=== PATIENT | female | born 1950 | race Two or more races ===

== ENCOUNTER 2019-04-19 17:51 | Emergency (ER) | payer OTHER ==
[~2019-04-19] VITALS: Ht 157.5 cm; Wt 57.2 kg
[~2019-04-19 17:51] MED LIST: ADVAIR 2501 DISK W/1 IH; CIPRO I.V.400 MG/201 IV; CLARINEX5 MG/TAB PO; COUMADIN; COUMADIN5 MG; CRESTOR10 MG PO; GLUCOPHAGE XR500 MG PO; GLUCOTROL10 MG; GLUCOTROL10 MG PO; HUMALOG100 U/ML SQ; HumaLOG 100 UNIT/1 ML (3ML) SUBCUTANEO; Lantus 1000 U/10 ML SUBCUTANEO; MEDROL4 MG PO; NEURONTIN300 MG; PLAVIX75 MG PO; SINGULAIR 10MG10 MG; SINGULAIR10 MG PO; SKELAXIN800 MG PO; TUSSIONEX PENNKI5 ML; TUSSIONEX PENNKI5 ML PO; XOPENEX1.25 MG/0. IH; ZESTRIL5 MG PO; ZYNCOF 20-400120 ML PO
[2019-04-19] MEDS ORDERED: JANUMET 50-5001 EACH (18:45)
== END 2019-04-19 20:36 | disposition home or self-care (01) ==
LOC: ER 17:51
DX: K04.7 Periapical abscess without sinus (principal)

== ENCOUNTER 2019-04-20 23:33 | Emergency (ER) | payer OTHER ==
[~2019-04-20] VITALS: Ht 157.5 cm; Wt 57.2 kg
[~2019-04-20 23:33] MED LIST changes: +JANUMET 50-5001 EACH
[2019-04-21] MEDS ORDERED: PERCOCET 5-3251 EACH PO (00:32)
== END 2019-04-21 01:02 | disposition home or self-care (01) ==
LOC: ER 23:33
DX: K04.7 Periapical abscess without sinus (principal)

== ENCOUNTER 2023-07-25 10:48 | Emergency (ER) | payer OTHER ==
[~2023-07-25] VITALS: Ht 152.4 cm; Wt 47.6 kg
[~2023-07-25 10:48] MED LIST changes: +PERCOCET 5-3251 EACH PO
== END 2023-07-25 15:25 | disposition home or self-care (01) ==
LOC: ER 10:48
DX: S09.8XXA Other specified injuries of head, initial encounter (principal); W18.39XA Other fall on same level, initial encounter; Y93.89 Activity, other specified; Y92.480 Sidewalk as the place of occurrence of the external cause; I49.8 Other specified cardiac arrhythmias; J45.909 Unspecified asthma, uncomplicated; E03.9 Hypothyroidism, unspecified; I11.9 Hypertensive heart disease without heart failure; Z88.6 Allergy status to analgesic agent; Z91.013 Allergy to seafood